=== PATIENT | male | born 1960 | race African-American/Black ===

== ENCOUNTER 2020-06-12 08:53 | Inpatient (IN) | payer OTHER ==
[2020-06-12 11:23] VITALS: BMI 19.8
[2020-06-12] MEDS ORDERED: PERMETHRIN 5% TOPICAL CREAM 60 GM TUBE ONE (11:39)
[2020-06-12] MEDS ORDERED: MAG HYDROX/AL HYDROX/SIMETH 30 ML UNIT-DOSE CUP PO PRN (13:40)
[2020-06-12] MEDS ORDERED: IBUPROFEN 400 MG TABLET (FP) PO PRN (13:40)
[2020-06-12] MEDS ORDERED: MAGNESIUM CITRATE 300 ML BOTTLE PO PRN (13:40)
[2020-06-12] MEDS ORDERED: ACETAMINOPHEN 325 MG TABLET (FP) PO PRN ×2 (13:40)
[2020-06-12] MEDS ORDERED: ONDANSETRON *ODT* 4 MG TABLET SL PRN (13:40)
[2020-06-12] MEDS ORDERED: MENTHOL/PHENOL 1 EACH UD MM PRN (13:40)
[2020-06-12] MEDS ORDERED: MAGNESIUM HYDROX 2400MG/30ML ORAL SUSPENSION 30 ML CUP PO PRN (13:40)
[2020-06-12] MEDS ORDERED: NICOTINE POLACRILEX 2 MG GUM BUC PRN (13:40)
[2020-06-12] MEDS ORDERED: LORazepam 1 MG TABLET PO PRN (13:40)
[2020-06-12] MEDS ORDERED: METHOCARBAMOL 500 MG TABLET PO PRN (13:40)
[2020-06-12] MEDS ORDERED: BISMUTH SUBSALICYLATE 524 MG/30 ML UD PO PRN (13:40)
[2020-06-12] MEDS: NICOTINE 7 MG/24 HOURS TOPICAL PATCH TD SCH (14:41)
[2020-06-12] MEDS: hydrOXYzine PAMOATE 25 MG CAPSULE (FP) PO SCH ×3 (14:43→23:02)
[2020-06-12] MEDS ORDERED: PERMETHRIN 5% TOPICAL CREAM 60 GM TUBE TP ONE (14:45)
[2020-06-12 16:31] LABS: HEMATOCRIT 27.2 % (35.4-49); HEMOGLOBIN 9.2 GM/dL (11.7-16.9); MCH 31.6 pg (25.7-33.7); MCHC 33.8 g/dl (32.0-35.9); MEAN CELL VOLUME 93.3 fl (80-96); MEAN PLT VOLUME 9.7 fl (7.5-11.1); PLATELET COUNT 92 K/MM3 (134-434); RBC 2.91 M/mm3 (4.00-5.60); RDW 15.6 % (11.9-15.9); WHITE BLOOD COUNT 5.4 K/mm3 (4.0-10.0)
[2020-06-12 16:33] LABS: POTASSIUM 4.3 mmol/L (3.5-5.1)
[2020-06-12 16:38] LABS: ALBUMIN 1.8 g/dl (3.4-5.0); BLOOD UREA NITROGEN 13.4 mg/dL (7-18)
[2020-06-12 16:40] LABS: CREATININE 0.9 mg/dL (0.55-1.3)
[2020-06-12 16:42] LABS: BILIRUBIN,TOTAL 2.6 mg/dL (0.2-1)
[2020-06-12 16:43] LABS: TOT PROT 8.5 g/dl (6.4-8.2)
[2020-06-12] MEDS: LORazepam 2 MG TABLET PO SCH ×2 (18:26→23:02)
[2020-06-12] MEDS: PANTOPRAZOLE 20 MG TABLET PO SCH (23:02)
[2020-06-12] MEDS: THIAMINE HCL 100 MG TABLET (FP) PO SCH (23:02)
[2020-06-12] MEDS: MELATONIN 5 MG TABLETS PO SCH (23:03)
[2020-06-13] MEDS: LORazepam 2 MG TABLET PO SCH ×4 (04:46→23:28)
[2020-06-13] MEDS: hydrOXYzine PAMOATE 25 MG CAPSULE (FP) PO SCH ×3 (05:49→13:26)
[2020-06-13] MEDS: SPIRONOLACTONE 25 MG TABLET PO SCH (10:34)
[2020-06-13] MEDS: PRENATAL VITAMINS W/ FOLIC ACID TABLET (FP) PO SCH (10:34)
[2020-06-13] MEDS: PANTOPRAZOLE 20 MG TABLET PO SCH ×2 (10:34→23:29)
[2020-06-13] MEDS: NICOTINE 7 MG/24 HOURS TOPICAL PATCH TD SCH (10:44)
[2020-06-13] MEDS: FUROSEMIDE 20 MG TABLET (FP) PO SCH (13:23)
[2020-06-13] MEDS: FERROUS SO4 325 MG TABLET (FP) PO SCH (14:40)
[2020-06-13] MEDS: THIAMINE HCL 100 MG TABLET (FP) PO SCH (23:29)
[2020-06-13] MEDS: MELATONIN 5 MG TABLETS PO SCH (23:29)
[2020-06-14] MEDS: LORazepam 1 MG TABLET PO SCH ×4 (06:18→23:24)
[2020-06-14] MEDS: SPIRONOLACTONE 25 MG TABLET PO SCH (10:43)
[2020-06-14] MEDS: FUROSEMIDE 20 MG TABLET (FP) PO SCH (10:44)
[2020-06-14] MEDS: FERROUS SO4 325 MG TABLET (FP) PO SCH (10:44)
[2020-06-14] MEDS: PRENATAL VITAMINS W/ FOLIC ACID TABLET (FP) PO SCH (10:44)
[2020-06-14] MEDS: PANTOPRAZOLE 20 MG TABLET PO SCH ×2 (10:44→23:24)
[2020-06-14] MEDS: NICOTINE 7 MG/24 HOURS TOPICAL PATCH TD SCH (10:44)
[2020-06-14 13:48] LABS: POTASSIUM 4.2 mmol/L (3.5-5.1)
[2020-06-14 13:51] LABS: HEMOGLOBIN 9.4 GM/dL (11.7-16.9); MCH 31.8 pg (25.7-33.7); MCHC 33.7 g/dl (32.0-35.9); MEAN CELL VOLUME 94.2 fl (80-96); PLATELET COUNT 82 K/MM3 (134-434); RBC 2.97 M/mm3 (4.00-5.60); RDW 16.6 % (11.9-15.9); WHITE BLOOD COUNT 7.6 K/mm3 (4.0-10.0)
[2020-06-14 13:53] LABS: INR 1.93 (0.83-1.09); PROTHROMBIN TIME (PATIENT) 23.3 SEC (9.7-13.0)
[2020-06-14 13:59] LABS: ALBUMIN 1.8 g/dl (3.4-5.0); BLOOD UREA NITROGEN 10.2 mg/dL (7-18); CALCIUM 8.4 mg/dL (8.5-10.1)
[2020-06-14 14:02] LABS: CREATININE 0.8 mg/dL (0.55-1.3)
[2020-06-14 14:04] LABS: BILIRUBIN,TOTAL 2.6 mg/dL (0.2-1)
[2020-06-14] MEDS ORDERED: LACTULOSE 20 GM/30 ML UDC (FOR ORAL USE ONLY) PO PRN (16:20)
[2020-06-14] MEDS: THIAMINE HCL 100 MG TABLET (FP) PO SCH (23:24)
[2020-06-14] MEDS: MELATONIN 5 MG TABLETS PO SCH (23:24)
[2020-06-15] MEDS ORDERED: LORazepam 0.5 MG TABLET PO PRN
[2020-06-15] MEDS: LORazepam 0.5 MG TABLET PO SCH ×4 (07:37→22:44)
[2020-06-15] MEDS: SPIRONOLACTONE 25 MG TABLET PO SCH (10:42)
[2020-06-15] MEDS: PRENATAL VITAMINS W/ FOLIC ACID TABLET (FP) PO SCH (10:42)
[2020-06-15] MEDS: FERROUS SO4 325 MG TABLET (FP) PO SCH ×2 (10:42→18:35)
[2020-06-15] MEDS: PANTOPRAZOLE 20 MG TABLET PO SCH ×2 (10:42→22:45)
[2020-06-15] MEDS: FUROSEMIDE 20 MG TABLET (FP) PO SCH (10:42)
[2020-06-15] MEDS: NICOTINE 7 MG/24 HOURS TOPICAL PATCH TD SCH (10:42)
[2020-06-15 11:16] LABS: POTASSIUM 4.3 mmol/L (3.5-5.1)
[2020-06-15 11:21] LABS: ALBUMIN 1.7 g/dl (3.4-5.0); BLOOD UREA NITROGEN 12.7 mg/dL (7-18)
[2020-06-15 11:23] LABS: CALCIUM 8.6 mg/dL (8.5-10.1)
[2020-06-15 11:24] LABS: CREATININE 0.7 mg/dL (0.55-1.3)
[2020-06-15 11:25] LABS: BILIRUBIN,TOTAL 2.2 mg/dL (0.2-1)
[2020-06-15 11:26] LABS: TOT PROT 8.5 g/dl (6.4-8.2)
[2020-06-15 11:29] LABS: HEMOGLOBIN 9.9 GM/dL (11.7-16.9); MCH 31.7 pg (25.7-33.7); MEAN CELL VOLUME 92.9 fl (80-96)
[2020-06-15 11:33] LABS: HEMATOCRIT 28.9 % (35.4-49); INR 2.02 (0.83-1.09); MCHC 34.1 g/dl (32.0-35.9); MEAN PLT VOLUME 10.2 fl (7.5-11.1); PLATELET COUNT 87 K/MM3 (134-434); RBC 3.11 M/mm3 (4.00-5.60); RDW 16.8 % (11.9-15.9); WHITE BLOOD COUNT 6.3 K/mm3 (4.0-10.0)
[2020-06-15] MEDS: LACTULOSE 20 GM/30 ML UDC (FOR ORAL USE ONLY) PO SCH ×2 (18:34→22:45)
[2020-06-15] MEDS: THIAMINE HCL 100 MG TABLET (FP) PO SCH (22:45)
[2020-06-15] MEDS: MELATONIN 5 MG TABLETS PO SCH (22:45)
[2020-06-16] MEDS ORDERED: LORazepam 0.5 MG TABLET PO ONE (05:00)
[2020-06-16] MEDS: FERROUS SO4 325 MG TABLET (FP) PO SCH ×3 (07:59→19:33)
[2020-06-16 09:51] VITALS: TEMP 97.1
[2020-06-16] MEDS: SPIRONOLACTONE 25 MG TABLET PO SCH (10:17)
[2020-06-16] MEDS: FUROSEMIDE 20 MG TABLET (FP) PO SCH (10:17)
[2020-06-16] MEDS: LACTULOSE 20 GM/30 ML UDC (FOR ORAL USE ONLY) PO SCH ×4 (10:17→23:43)
[2020-06-16] MEDS: NICOTINE 7 MG/24 HOURS TOPICAL PATCH TD SCH (10:18)
[2020-06-16] MEDS: PANTOPRAZOLE 20 MG TABLET PO SCH ×2 (10:44→23:43)
[2020-06-16] MEDS: PRENATAL VITAMINS W/ FOLIC ACID TABLET (FP) PO SCH (10:44)
[2020-06-16 11:50] LABS: POTASSIUM 3.7 mmol/L (3.5-5.1)
[2020-06-16 11:53] LABS: INR 1.82 (0.83-1.09)
[2020-06-16 11:54] LABS: HEMATOCRIT 32.8 % (35.4-49); HEMOGLOBIN 10.6 GM/dL (11.7-16.9); MCH 27.8 pg (25.7-33.7); MCHC 32.2 g/dl (32.0-35.9); MEAN CELL VOLUME 86.2 fl (80-96); MEAN PLT VOLUME 9.8 fl (7.5-11.1); PLATELET COUNT 99 K/MM3 (134-434); RBC 3.81 M/mm3 (4.00-5.60); RDW 22.4 % (11.9-15.9); WHITE BLOOD COUNT 6.5 K/mm3 (4.0-10.0)
[2020-06-16 12:14] LABS: BLOOD UREA NITROGEN 10.9 mg/dL (7-18)
[2020-06-16 12:18] LABS: BILIRUBIN,TOTAL 2.8 mg/dL (0.2-1); TOT PROT 8.4 g/dl (6.4-8.2)
[2020-06-16 12:19] LABS: CALCIUM 8.3 mg/dL (8.5-10.1)
[2020-06-16 13:14] VITALS: BP 90/56; PULSE 109
[2020-06-16] MEDS: MELATONIN 5 MG TABLETS PO SCH (23:43)
[2020-06-16] MEDS: THIAMINE HCL 100 MG TABLET (FP) PO SCH (23:43)
== END 2020-06-16 23:48 | disposition short-term general hospital (02) | DRG 775 ==
LOC: YASAS 08:53 → Y6N 13:29
PROVIDERS: ADMIT Allergy & Immunology; ATTEND Allergy & Immunology
PROC: HZ2ZZZZ Detoxification Services for Substance Abuse Treatment (ICD-10-PCS; principal; 2020-06-12)
DX: F10.230 Alcohol dependence with withdrawal, uncomplicated (principal); F12.10 Cannabis abuse, uncomplicated; F17.210 Nicotine dependence, cigarettes, uncomplicated; D61.818 Other pancytopenia; D64.9 Anemia, unspecified; B88.8 Other specified infestations; B18.2 Chronic viral hepatitis C; K74.60 Unspecified cirrhosis of liver; M19.90 Unspecified osteoarthritis, unspecified site; R41.82 Altered mental status, unspecified; K00.0 Anodontia; R63.4 Abnormal weight loss; Z68.1 Body mass index [BMI] 19.9 or less, adult; Z56.0 Unemployment, unspecified
CPT/HCPCS: 36415; 80053; 82140; 85027; 85610; 86780; 93005; 93010; C9803; U0003

== ENCOUNTER 2020-06-16 15:07 | Inpatient (IN) | payer OTHER ==
[2020-06-16] MEDS ORDERED: LACTULOSE 20 GM/30 ML UDC (FOR ORAL USE ONLY) PO ONE ×2 (17:23→21:28)
[2020-06-16] MEDS ORDERED: LACTULOSE 20 GM/30 ML UDC (FOR ORAL USE ONLY) ONE ×2 (17:29→21:43)
[2020-06-16 18:48] LABS: PH,URINE 8.5 (5.0-8.0); URINE APPEARANCE TURBID; URINE BILIRUBIN NEGATIVE (NEGATIVE); URINE COLOR DK YELLOW; URINE GLUCOSE (UA) NEGATIVE (NEGATIVE); URINE KETONE NEGATIVE (NEGATIVE); URINE LEUK ESTERASE 2+ (NEGATIVE); URINE NITRITE NEGATIVE (NEGATIVE); URINE PROTEIN NEGATIVE (NEGATIVE); URINE RBC 3 /uL (0-23.9); URINE WBC 73 /uL (0-25.8)
[2020-06-16 18:49] LABS: EPI CELLS 85 /uL (0-25.1); HYALINE CASTS 289 /uL (0-3.1); URINE BACTERIA 630 /uL (0-1359)
[2020-06-16] MEDS ORDERED: THIAMINE HCL 200 MG/2 ML VIAL IVPB ONE (20:47)
[2020-06-16] MEDS ORDERED: LACTATED RINGERS SOLUTION 1,000 ML/1,000 ML INFUS.BAG IV SCH (21:00)
[2020-06-16] MEDS ORDERED: CEFTRIAXONE 1,000 MG in DEXTROSE 5%-WATER - 50 ML IVPB ONE (21:26)
[2020-06-16] MEDS ORDERED: THIAMINE HCL 200 MG/2 ML VIAL ONE (21:27)
[2020-06-16] MEDS ORDERED: LORazepam 1 MG TABLET PO PRN (21:32)
[2020-06-16] MEDS ORDERED: CEFTRIAXONE 1 GM/50 ML BAG ONE (21:44)
[2020-06-16] MEDS: LACTULOSE 20 GM/30 ML UDC (FOR ORAL USE ONLY) PO SCH (23:43)
[2020-06-16] MEDS: RIFAXIMIN 550 MG TABLET (UD) PO SCH (23:54)
[2020-06-17] MEDS ORDERED: LACTULOSE 20 GM/30 ML UDC (FOR ORAL USE ONLY) PO SCH (03:00)
[2020-06-17] MEDS ORDERED: LACTULOSE 20 GM/30 ML UDC (FOR ORAL USE ONLY) ONE ×2 (06:57→14:46)
[2020-06-17] MEDS: LACTULOSE 20 GM/30 ML UDC (FOR ORAL USE ONLY) PO SCH ×3 (06:59→21:51)
[2020-06-17 08:24] LABS: HEMATOCRIT 27.2 % (35.4-49); HEMOGLOBIN 9.2 GM/dL (11.7-16.9); MCH 31.8 pg (25.7-33.7); MCHC 33.7 g/dl (32.0-35.9); MEAN CELL VOLUME 94.4 fl (80-96); PLATELET COUNT 69 K/MM3 (134-434); RBC 2.88 M/mm3 (4.00-5.60); RDW 17.3 % (11.9-15.9); WHITE BLOOD COUNT 6.4 K/mm3 (4.0-10.0)
[2020-06-17 08:31] LABS: INR 1.95 (0.83-1.09); PROTHROMBIN TIME (PATIENT) 23.1 SEC (9.7-13.0)
[2020-06-17 08:34] LABS: ACTIVATED PTT 38.9 SECONDS (25.2-36.5)
[2020-06-17 08:46] LABS: POTASSIUM 4.6 mmol/L (3.5-5.1)
[2020-06-17 08:58] LABS: CALCIUM 8.7 mg/dL (8.5-10.1)
[2020-06-17 08:59] LABS: MAGNESIUM 1.6 mg/dL (1.8-2.4)
[2020-06-17 09:02] LABS: BLOOD UREA NITROGEN 7.6 mg/dL (7-18); PHOSPHOROUS 3.8 mg/dL (2.5-4.9)
[2020-06-17 09:03] LABS: BILIRUBIN,TOTAL 2.1 mg/dL (0.2-1); TOT PROT 8.6 g/dl (6.4-8.2)
[2020-06-17 09:05] LABS: CREATININE 0.8 mg/dL (0.55-1.3)
[2020-06-17] MEDS ORDERED: FOLIC ACID 1 MG TABLET (FP) ONE (09:34)
[2020-06-17] MEDS ORDERED: THIAMINE HCL 100 MG TABLET (FP) ONE (09:35)
[2020-06-17 09:44] LABS: ALBUMIN 1.8 g/dl (3.4-5.0)
[2020-06-17] MEDS: THIAMINE HCL 100 MG TABLET (FP) PO SCH ×2 (10:00→21:50)
[2020-06-17] MEDS: FOLIC ACID 1 MG TABLET (FP) PO SCH (10:00)
[2020-06-17] MEDS: RIFAXIMIN 550 MG TABLET (UD) PO SCH ×2 (10:15→21:50)
[2020-06-17] MEDS ORDERED: CEFTRIAXONE 1 GM/50 ML BAG ONE (14:50)
[2020-06-17] MEDS: SODIUM CHLORIDE 1,000 ML IV SCH (15:03)
[2020-06-17] MEDS: CEFTRIAXONE 1 GM in DEXTROSE 5%-WATER - 50 ML IVPB SCH (15:03)
[2020-06-17] MEDS ORDERED: MAGNESIUM OXIDE 400 MG TABLET (FP) PO ONE (19:20)
[2020-06-18] MEDS ORDERED: LORazepam 0.5 MG TABLET PO PRN
[2020-06-18] MEDS: LACTULOSE 20 GM/30 ML UDC (FOR ORAL USE ONLY) PO SCH (06:10)
[2020-06-18 09:08] LABS: HEMATOCRIT 28.3 % (35.4-49); HEMOGLOBIN 9.5 GM/dL (11.7-16.9); MCH 31.7 pg (25.7-33.7); MCHC 33.7 g/dl (32.0-35.9); MEAN CELL VOLUME 93.9 fl (80-96); MEAN PLT VOLUME 10.7 fl (7.5-11.1); RBC 3.01 M/mm3 (4.00-5.60); RDW 17.4 % (11.9-15.9); WHITE BLOOD COUNT 6.9 K/mm3 (4.0-10.0)
[2020-06-18 09:15] LABS: INR 1.89 (0.83-1.09); PROTHROMBIN TIME (PATIENT) 22.8 SEC (9.7-13.0)
[2020-06-18 09:16] LABS: PLATELET COUNT 78 K/MM3 (134-434)
[2020-06-18 09:17] LABS: ACTIVATED PTT 38.9 SECONDS (25.2-36.5)
[2020-06-18 09:22] LABS: POTASSIUM 4.1 mmol/L (3.5-5.1)
[2020-06-18 09:30] LABS: ALBUMIN 1.7 g/dl (3.4-5.0)
[2020-06-18 09:31] LABS: CALCIUM 8.1 mg/dL (8.5-10.1); MAGNESIUM 1.6 mg/dL (1.8-2.4)
[2020-06-18 09:32] LABS: BLOOD UREA NITROGEN 9.6 mg/dL (7-18)
[2020-06-18 09:33] LABS: CREATININE 0.7 mg/dL (0.55-1.3)
[2020-06-18 09:34] LABS: BILIRUBIN,TOTAL 1.9 mg/dL (0.2-1); PHOSPHOROUS 3.3 mg/dL (2.5-4.9)
[2020-06-18] MEDS ORDERED: cefTRIAXone SODIUM 1 GM VIAL ONE (10:02)
[2020-06-18] MEDS ORDERED: DEXTROSE 5%-WATER - 50 ML IVPB ONE (10:03)
[2020-06-18] MEDS: SODIUM CHLORIDE 1,000 ML IV SCH (10:04)
[2020-06-18] MEDS: CEFTRIAXONE 1 GM in DEXTROSE 5%-WATER - 50 ML IVPB SCH (10:05)
[2020-06-18] MEDS: RIFAXIMIN 550 MG TABLET (UD) PO SCH ×2 (10:05→21:14)
[2020-06-18] MEDS: THIAMINE HCL 100 MG TABLET (FP) PO SCH ×2 (10:05→21:14)
[2020-06-18] MEDS: FOLIC ACID 1 MG TABLET (FP) PO SCH (10:05)
[2020-06-18] MEDS ORDERED: LACTULOSE 20 GM/30 ML UDC (FOR ORAL USE ONLY) PO PRN (10:06)
[2020-06-18] MEDS ORDERED: MAGNESIUM SULF 50% (8.12 MEQ/2 ML-1 GM VIAL) IVPB ONE (10:22)
[2020-06-18 14:14] LABS: HIV INTERPRETATION NEGATIVE (NEGATIVE)
[2020-06-18] MEDS ORDERED: ENOXAPARIN NA (PORCINE) 40 MG/0.4 ML DISP.SYRIN SQ ONE (14:25)
[2020-06-18] MEDS: MULTIVITAMINS (DAILY MVI) TABLET (FP) PO SCH (14:34)
[2020-06-19] MEDS: SODIUM CHLORIDE 1,000 ML IV SCH (02:00)
[2020-06-19] MEDS ORDERED: SODIUM CHLORIDE 500 ML IV STA (05:52)
[2020-06-19] MEDS ORDERED: cefTRIAXone SODIUM 1 GM VIAL ONE (08:45)
[2020-06-19] MEDS ORDERED: DEXTROSE 5%-WATER - 50 ML IVPB ONE (08:46)
[2020-06-19] MEDS: CEFTRIAXONE 1 GM in DEXTROSE 5%-WATER - 50 ML IVPB SCH (09:15)
[2020-06-19] MEDS: RIFAXIMIN 550 MG TABLET (UD) PO SCH ×2 (09:15→22:06)
[2020-06-19] MEDS: MULTIVITAMINS (DAILY MVI) TABLET (FP) PO SCH (09:15)
[2020-06-19] MEDS: THIAMINE HCL 100 MG TABLET (FP) PO SCH ×2 (09:15→22:06)
[2020-06-19] MEDS: FOLIC ACID 1 MG TABLET (FP) PO SCH (09:15)
[2020-06-19 09:20] LABS: POTASSIUM 4.5 mmol/L (3.5-5.1)
[2020-06-19 09:37] LABS: ALBUMIN 1.5 g/dl (3.4-5.0); BLOOD UREA NITROGEN 7.7 mg/dL (7-18); MAGNESIUM 1.6 mg/dL (1.8-2.4)
[2020-06-19 09:38] LABS: CALCIUM 7.4 mg/dL (8.5-10.1)
[2020-06-19 09:39] LABS: CREATININE 0.5 mg/dL (0.55-1.3)
[2020-06-19 09:40] LABS: PHOSPHOROUS 2.9 mg/dL (2.5-4.9)
[2020-06-19 09:41] LABS: BILIRUBIN,TOTAL 1.7 mg/dL (0.2-1)
[2020-06-19 09:57] LABS: BASO % 1.1 % (0-2.0); EOS % 7.3 % (0-4.5); HEMATOCRIT 22.7 % (35.4-49); HEMOGLOBIN 7.7 GM/dL (11.7-16.9); LYMPH % 26.6 % (8-40); MCH 31.9 pg (25.7-33.7); MCHC 34.1 g/dl (32.0-35.9); MEAN CELL VOLUME 93.7 fl (80-96); MEAN PLT VOLUME 9.7 fl (7.5-11.1); MONO % 16.3 % (3.8-10.2); NEUT % 48.7 % (42.8-82.8); PLATELET COUNT 63 K/MM3 (134-434); RBC 2.42 M/mm3 (4.00-5.60); RDW 17.6 % (11.9-15.9); WHITE BLOOD COUNT 5.7 K/mm3 (4.0-10.0)
[2020-06-19] MEDS ORDERED: MAGNESIUM SULF 50% (8.12 MEQ/2 ML-1 GM VIAL) IVPB ONE (12:31)
[2020-06-19 22:13] VITALS: TEMP 97.6
[2020-06-20 06:36] VITALS: BP 95/71; PULSE 83
[2020-06-20] MEDS: SODIUM CHLORIDE 1,000 ML IV SCH (06:36)
[2020-06-20] MEDS ORDERED: cefTRIAXone SODIUM 1 GM VIAL ONE (10:15)
[2020-06-20] MEDS ORDERED: DEXTROSE 5%-WATER - 50 ML IVPB ONE (10:15)
[2020-06-20 10:29] LABS: BASO % 1.1 % (0-2.0); EOS % 7.1 % (0-4.5); HEMATOCRIT 27.3 % (35.4-49); HEMOGLOBIN 9.2 GM/dL (11.7-16.9); LYMPH % 22.4 % (8-40); MCH 31.5 pg (25.7-33.7); MCHC 33.9 g/dl (32.0-35.9); MEAN CELL VOLUME 92.9 fl (80-96); MEAN PLT VOLUME 8.8 fl (7.5-11.1); MONO % 18.3 % (3.8-10.2); NEUT % 51.1 % (42.8-82.8); PLATELET COUNT 56 K/MM3 (134-434); RBC 2.94 M/mm3 (4.00-5.60); RDW 16.8 % (11.9-15.9); WHITE BLOOD COUNT 6.5 K/mm3 (4.0-10.0)
[2020-06-20] MEDS: THIAMINE HCL 100 MG TABLET (FP) PO SCH (10:38)
[2020-06-20] MEDS: RIFAXIMIN 550 MG TABLET (UD) PO SCH (10:38)
[2020-06-20] MEDS: FOLIC ACID 1 MG TABLET (FP) PO SCH (10:38)
[2020-06-20] MEDS: MULTIVITAMINS (DAILY MVI) TABLET (FP) PO SCH (10:38)
[2020-06-20] MEDS: CEFTRIAXONE 1 GM in DEXTROSE 5%-WATER - 50 ML IVPB SCH (10:39)
[2020-06-20 10:52] LABS: POTASSIUM 4.3 mmol/L (3.5-5.1)
[2020-06-20 10:57] LABS: CALCIUM 7.5 mg/dL (8.5-10.1)
[2020-06-20 10:58] LABS: ALBUMIN 1.5 g/dl (3.4-5.0); BLOOD UREA NITROGEN 7.6 mg/dL (7-18); MAGNESIUM 1.5 mg/dL (1.8-2.4)
[2020-06-20 11:01] LABS: CREATININE 0.5 mg/dL (0.55-1.3)
[2020-06-20 11:02] LABS: BILIRUBIN,TOTAL 2.1 mg/dL (0.2-1); TOT PROT 7.2 g/dl (6.4-8.2)
== END 2020-06-20 18:44 | disposition other institution (70) | DRG 280 ==
LOC: JER 15:07 → JERBED 19:30 → J8W 06-17 16:54 → J6S 06-17 20:24
PROVIDERS: ADMIT Internal Medicine; ATTEND Student in an Organized Health Care Education/Training Program
DX: K70.40 Alcoholic hepatic failure without coma (principal); K70.30 Alcoholic cirrhosis of liver without ascites; D69.6 Thrombocytopenia, unspecified; B19.10 Unspecified viral hepatitis B without hepatic coma; E83.42 Hypomagnesemia; R64 Cachexia; D64.9 Anemia, unspecified; F10.230 Alcohol dependence with withdrawal, uncomplicated; B19.20 Unspecified viral hepatitis C without hepatic coma; N39.0 Urinary tract infection, site not specified; Z68.1 Body mass index [BMI] 19.9 or less, adult; B86 Scabies
CPT/HCPCS: 36415; 36430; 36511; 70450-TC; 71045-TC-FY; 80053; 80074; 81003; 82140; 82607; 82746; 83540; 83550; 83735; 84100; 85025; 85027; 85610; 85730; 86317; 86704; 86705; 86707; 86850; 86900; 86901; 86922; 87040; 87086; 87186; 87340; 87350; 87389; 87517; 87522; 93005; 93010; 99285-25; C9803; P9016; P9038; U0003

== ENCOUNTER 2020-06-20 18:29 | Inpatient (IN) | payer OTHER ==
[2020-06-20 19:29] VITALS: BMI 21.2
[2020-06-20] MEDS ORDERED: LACTULOSE 20 GM/30 ML UDC (FOR ORAL USE ONLY) PO PRN (19:47)
[2020-06-20] MEDS ORDERED: MAGNESIUM HYDROX 2400MG/30ML ORAL SUSPENSION 30 ML CUP PO PRN (19:48)
[2020-06-20] MEDS ORDERED: MAG HYDROX/AL HYDROX/SIMETH 30 ML UNIT-DOSE CUP PO PRN (19:48)
[2020-06-20] MEDS ORDERED: P-EPHED 60MG/TRIPROLIDI 2.5MG TABLET PO PRN (19:48)
[2020-06-20] MEDS ORDERED: MAGNESIUM CITRATE 300 ML BOTTLE PO PRN (19:48)
[2020-06-20] MEDS ORDERED: LOPERAMIDE HCL 2 MG CAPSULE PO PRN (19:48)
[2020-06-20] MEDS ORDERED: NICOTINE POLACRILEX 2 MG GUM BC PRN (19:48)
[2020-06-20] MEDS ORDERED: guaiFENesin 200 MG/10 ML 10 ML UNIT-DOSE CUPS PO PRN (19:48)
[2020-06-20] MEDS ORDERED: MASKS NR ONE (22:53)
[2020-06-20] MEDS: RIFAXIMIN 550 MG TABLET (UD) PO SCH (23:13)
[2020-06-20] MEDS: THIAMINE HCL 100 MG TABLET (FP) PO SCH (23:13)
[2020-06-20] MEDS: MELATONIN 5 MG TABLETS PO SCH (23:13)
[2020-06-20] MEDS: PANTOPRAZOLE 20 MG TABLET PO SCH (23:13)
[2020-06-21] MEDS: PANTOPRAZOLE 20 MG TABLET PO SCH ×2 (10:33→21:50)
[2020-06-21] MEDS: PRENATAL VITAMINS W/ FOLIC ACID TABLET (FP) PO SCH (10:33)
[2020-06-21] MEDS: RIFAXIMIN 550 MG TABLET (UD) PO SCH (10:34)
[2020-06-21] MEDS: BACITRACIN 0.9 GM PACKET TP SCH (21:50)
[2020-06-21] MEDS: MELATONIN 5 MG TABLETS PO SCH (21:51)
[2020-06-21] MEDS: THIAMINE HCL 100 MG TABLET (FP) PO SCH (21:51)
[2020-06-22 00:25] LABS: URINE APPEARANCE CLEAR; URINE BILIRUBIN NEGATIVE (NEGATIVE); URINE COLOR YELLOW; URINE GLUCOSE (UA) NEGATIVE (NEGATIVE); URINE KETONE NEGATIVE (NEGATIVE); URINE LEUK ESTERASE NEGATIVE (NEGATIVE); URINE NITRITE NEGATIVE (NEGATIVE); URINE PROTEIN NEGATIVE (NEGATIVE)
[2020-06-22] MEDS: RIFAXIMIN 550 MG TABLET (UD) PO SCH ×3 (01:00→21:24)
[2020-06-22] MEDS: PANTOPRAZOLE 20 MG TABLET PO SCH ×2 (10:12→21:23)
[2020-06-22] MEDS: BACITRACIN 0.9 GM PACKET TP SCH ×2 (10:12→21:24)
[2020-06-22] MEDS: PRENATAL VITAMINS W/ FOLIC ACID TABLET (FP) PO SCH (10:12)
[2020-06-22] MEDS: THIAMINE HCL 100 MG TABLET (FP) PO SCH (21:23)
[2020-06-22] MEDS: MELATONIN 5 MG TABLETS PO SCH (21:24)
[2020-06-23] MEDS: BACITRACIN 0.9 GM PACKET TP SCH ×2 (10:53→22:00)
[2020-06-23] MEDS: PANTOPRAZOLE 20 MG TABLET PO SCH ×2 (10:53→22:00)
[2020-06-23] MEDS: PRENATAL VITAMINS W/ FOLIC ACID TABLET (FP) PO SCH (10:53)
[2020-06-23] MEDS: RIFAXIMIN 550 MG TABLET (UD) PO SCH ×2 (10:54→22:01)
[2020-06-23] MEDS: MELATONIN 5 MG TABLETS PO SCH (22:00)
[2020-06-23] MEDS: THIAMINE HCL 100 MG TABLET (FP) PO SCH (22:00)
[2020-06-24] MEDS ORDERED: PT OWN MED DRAWER 7, Y5N ONE (09:36)
[2020-06-24] MEDS: PRENATAL VITAMINS W/ FOLIC ACID TABLET (FP) PO SCH (10:59)
[2020-06-24] MEDS: RIFAXIMIN 550 MG TABLET (UD) PO SCH ×2 (10:59→22:02)
[2020-06-24] MEDS: PANTOPRAZOLE 20 MG TABLET PO SCH ×2 (10:59→22:02)
[2020-06-24] MEDS: IBUPROFEN 400 MG TABLET (FP) PO PRN (11:00)
[2020-06-24] MEDS: BACITRACIN 0.9 GM PACKET TP SCH ×2 (11:03→22:02)
[2020-06-24] MEDS: THIAMINE HCL 100 MG TABLET (FP) PO SCH (22:02)
[2020-06-24] MEDS: MELATONIN 5 MG TABLETS PO SCH (22:02)
[2020-06-25] MEDS: PRENATAL VITAMINS W/ FOLIC ACID TABLET (FP) PO SCH (10:28)
[2020-06-25] MEDS: BACITRACIN 0.9 GM PACKET TP SCH ×2 (10:28→21:42)
[2020-06-25] MEDS: PANTOPRAZOLE 20 MG TABLET PO SCH ×2 (10:28→21:42)
[2020-06-25] MEDS: RIFAXIMIN 550 MG TABLET (UD) PO SCH ×2 (10:28→21:42)
[2020-06-25] MEDS: THIAMINE HCL 100 MG TABLET (FP) PO SCH (21:42)
[2020-06-25] MEDS: MELATONIN 5 MG TABLETS PO SCH (21:42)
[2020-06-25] MEDS: IBUPROFEN 400 MG TABLET (FP) PO PRN (21:43)
[2020-06-26] MEDS: RIFAXIMIN 550 MG TABLET (UD) PO SCH ×2 (10:25→21:27)
[2020-06-26] MEDS: PRENATAL VITAMINS W/ FOLIC ACID TABLET (FP) PO SCH (10:25)
[2020-06-26] MEDS: BACITRACIN 0.9 GM PACKET TP SCH ×2 (10:27→21:27)
[2020-06-26] MEDS: PANTOPRAZOLE 20 MG TABLET PO SCH ×2 (10:27→21:26)
[2020-06-26] MEDS: IBUPROFEN 400 MG TABLET (FP) PO PRN (10:28)
[2020-06-26] MEDS: THIAMINE HCL 100 MG TABLET (FP) PO SCH (21:26)
[2020-06-26] MEDS: MELATONIN 5 MG TABLETS PO SCH (21:27)
[2020-06-27] MEDS ORDERED: COLLOIDAL OATMEAL 1 BAR EACH TP PRN (10:04)
[2020-06-27] MEDS: PRENATAL VITAMINS W/ FOLIC ACID TABLET (FP) PO SCH (10:23)
[2020-06-27] MEDS: PANTOPRAZOLE 20 MG TABLET PO SCH ×2 (10:23→22:04)
[2020-06-27] MEDS: RIFAXIMIN 550 MG TABLET (UD) PO SCH (10:24)
[2020-06-27] MEDS: BACITRACIN 0.9 GM PACKET TP SCH ×2 (10:24→22:02)
[2020-06-27] MEDS: IBUPROFEN 400 MG TABLET (FP) PO PRN (10:25)
[2020-06-27 12:15] LABS: HEMATOCRIT 27.7 % (35.4-49); HEMOGLOBIN 9.4 GM/dL (11.7-16.9); MEAN CELL VOLUME 94.2 fl (80-96); MEAN PLT VOLUME 10.6 fl (7.5-11.1); PLATELET COUNT 80 K/MM3 (134-434); RBC 2.94 M/mm3 (4.00-5.60); RDW 18.4 % (11.9-15.9); WHITE BLOOD COUNT 5.6 K/mm3 (4.0-10.0)
[2020-06-27 12:34] LABS: CALCIUM 8.4 mg/dL (8.5-10.1)
[2020-06-27 12:35] LABS: ALBUMIN 1.7 g/dl (3.4-5.0); BLOOD UREA NITROGEN 5.1 mg/dL (7-18)
[2020-06-27 12:38] LABS: CREATININE 0.6 mg/dL (0.55-1.3)
[2020-06-27 12:39] LABS: BILIRUBIN,TOTAL 2.1 mg/dL (0.2-1)
[2020-06-27 12:40] LABS: TOT PROT 7.4 g/dl (6.4-8.2)
[2020-06-27] MEDS: MELATONIN 5 MG TABLETS PO SCH (22:02)
[2020-06-27] MEDS: THIAMINE HCL 100 MG TABLET (FP) PO SCH (22:04)
[2020-06-28] MEDS: PRENATAL VITAMINS W/ FOLIC ACID TABLET (FP) PO SCH (10:48)
[2020-06-28] MEDS: BACITRACIN 0.9 GM PACKET TP SCH ×2 (10:49→21:06)
[2020-06-28] MEDS: PANTOPRAZOLE 20 MG TABLET PO SCH ×2 (10:49→21:06)
[2020-06-28] MEDS: IBUPROFEN 400 MG TABLET (FP) PO PRN ×2 (10:50→21:58)
[2020-06-28] MEDS ORDERED: FERROUS SO4 325 MG TABLET (FP) PO SCH ×2 (12:15→17:30)
[2020-06-28] MEDS ORDERED: RIFAXIMIN 550 MG TABLET (UD) PO ONE (12:45)
[2020-06-28] MEDS: RIFAXIMIN 550 MG TABLET (UD) PO SCH (21:06)
[2020-06-28] MEDS: THIAMINE HCL 100 MG TABLET (FP) PO SCH (21:06)
[2020-06-28] MEDS: MELATONIN 5 MG TABLETS PO SCH (21:07)
[2020-06-29] MEDS: IBUPROFEN 400 MG TABLET (FP) PO PRN ×2 (06:45→13:52)
[2020-06-29] MEDS: PANTOPRAZOLE 20 MG TABLET PO SCH ×2 (10:38→21:53)
[2020-06-29] MEDS: BACITRACIN 0.9 GM PACKET TP SCH ×2 (10:38→21:51)
[2020-06-29] MEDS: PRENATAL VITAMINS W/ FOLIC ACID TABLET (FP) PO SCH (10:38)
[2020-06-29] MEDS: RIFAXIMIN 550 MG TABLET (UD) PO SCH ×2 (10:39→21:53)
[2020-06-29] MEDS ORDERED: METHOCARBAMOL 500 MG TABLET PO PRN (12:07)
[2020-06-29] MEDS: METHYL SALICYLATE/MENTHOL OINT 30 GM TUBE TP SCH ×2 (13:54→21:54)
[2020-06-29] MEDS: VITAMINS A AND D TOPICAL OINTMENT 60 GM TUBE TP SCH ×3 (13:59→21:52)
[2020-06-29] MEDS ORDERED: NAPROXEN 500 MG TABLET PO PRN (14:25)
[2020-06-29] MEDS: MELATONIN 5 MG TABLETS PO SCH (21:52)
[2020-06-29] MEDS: METHOCARBAMOL 500 MG TABLET PO PRN (21:52)
[2020-06-29] MEDS: THIAMINE HCL 100 MG TABLET (FP) PO SCH (21:53)
[2020-06-30] MEDS: PANTOPRAZOLE 20 MG TABLET PO SCH ×2 (10:19→21:52)
[2020-06-30] MEDS: VITAMINS A AND D TOPICAL OINTMENT 60 GM TUBE TP SCH ×2 (10:19→21:53)
[2020-06-30] MEDS: PRENATAL VITAMINS W/ FOLIC ACID TABLET (FP) PO SCH (10:19)
[2020-06-30] MEDS: BACITRACIN 0.9 GM PACKET TP SCH ×2 (10:20→21:53)
[2020-06-30] MEDS: RIFAXIMIN 550 MG TABLET (UD) PO SCH ×2 (10:20→21:52)
[2020-06-30] MEDS: METHYL SALICYLATE/MENTHOL OINT 30 GM TUBE TP SCH ×2 (10:22→21:53)
[2020-06-30] MEDS: METHOCARBAMOL 500 MG TABLET PO PRN ×2 (10:24→21:52)
[2020-06-30] MEDS ORDERED: FUROSEMIDE 20 MG TABLET (FP) PO ONE (11:00)
[2020-06-30] MEDS ORDERED: SPIRONOLACTONE 25 MG TABLET PO ONE (11:00)
[2020-06-30] MEDS: MELATONIN 5 MG TABLETS PO SCH (21:52)
[2020-06-30] MEDS: THIAMINE HCL 100 MG TABLET (FP) PO SCH (21:52)
[2020-06-30] MEDS: SPIRONOLACTONE 25 MG TABLET PO SCH (21:52)
[2020-07-01] MEDS: METHYL SALICYLATE/MENTHOL OINT 30 GM TUBE TP SCH ×2 (10:03→21:23)
[2020-07-01] MEDS: RIFAXIMIN 550 MG TABLET (UD) PO SCH ×2 (10:03→21:28)
[2020-07-01] MEDS: VITAMINS A AND D TOPICAL OINTMENT 60 GM TUBE TP SCH ×2 (10:03→21:26)
[2020-07-01] MEDS: BACITRACIN 0.9 GM PACKET TP SCH ×2 (10:03→21:23)
[2020-07-01] MEDS: PRENATAL VITAMINS W/ FOLIC ACID TABLET (FP) PO SCH (10:03)
[2020-07-01] MEDS: PANTOPRAZOLE 20 MG TABLET PO SCH ×2 (10:03→21:27)
[2020-07-01] MEDS: FUROSEMIDE 20 MG TABLET (FP) PO SCH (10:03)
[2020-07-01] MEDS: SPIRONOLACTONE 25 MG TABLET PO SCH ×2 (10:03→21:25)
[2020-07-01] MEDS: MELATONIN 5 MG TABLETS PO SCH (21:19)
[2020-07-01] MEDS: THIAMINE HCL 100 MG TABLET (FP) PO SCH (21:28)
[2020-07-02] MEDS: METHOCARBAMOL 500 MG TABLET PO PRN (06:26)
[2020-07-02] MEDS: PANTOPRAZOLE 20 MG TABLET PO SCH ×2 (09:47→22:02)
[2020-07-02] MEDS: RIFAXIMIN 550 MG TABLET (UD) PO SCH ×2 (09:47→22:02)
[2020-07-02] MEDS: SPIRONOLACTONE 25 MG TABLET PO SCH ×2 (09:48→23:18)
[2020-07-02] MEDS: VITAMINS A AND D TOPICAL OINTMENT 60 GM TUBE TP SCH ×2 (09:50→22:02)
[2020-07-02] MEDS: BACITRACIN 0.9 GM PACKET TP SCH ×2 (09:50→22:02)
[2020-07-02] MEDS: FUROSEMIDE 20 MG TABLET (FP) PO SCH (09:51)
[2020-07-02] MEDS: PRENATAL VITAMINS W/ FOLIC ACID TABLET (FP) PO SCH (09:51)
[2020-07-02] MEDS: METHYL SALICYLATE/MENTHOL OINT 30 GM TUBE TP SCH ×2 (09:51→22:04)
[2020-07-02] MEDS ORDERED: PT OWN MED DRAWER 7, Y5N ONE ×3 (20:48→23:54)
[2020-07-02] MEDS: THIAMINE HCL 100 MG TABLET (FP) PO SCH (22:03)
[2020-07-02] MEDS: MELATONIN 5 MG TABLETS PO SCH (22:04)
[2020-07-03] MEDS: SPIRONOLACTONE 25 MG TABLET PO SCH ×2 (10:14→21:19)
[2020-07-03] MEDS: FUROSEMIDE 20 MG TABLET (FP) PO SCH (10:14)
[2020-07-03] MEDS: PRENATAL VITAMINS W/ FOLIC ACID TABLET (FP) PO SCH (10:14)
[2020-07-03] MEDS: BACITRACIN 0.9 GM PACKET TP SCH ×2 (10:15→21:19)
[2020-07-03] MEDS: VITAMINS A AND D TOPICAL OINTMENT 60 GM TUBE TP SCH ×2 (10:15→21:19)
[2020-07-03] MEDS: PANTOPRAZOLE 20 MG TABLET PO SCH ×2 (10:15→22:04)
[2020-07-03] MEDS: RIFAXIMIN 550 MG TABLET (UD) PO SCH ×2 (10:16→21:20)
[2020-07-03] MEDS: METHYL SALICYLATE/MENTHOL OINT 30 GM TUBE TP SCH ×2 (10:16→21:19)
[2020-07-03] MEDS: METHOCARBAMOL 500 MG TABLET PO PRN (21:20)
[2020-07-03] MEDS: MELATONIN 5 MG TABLETS PO SCH (21:21)
[2020-07-03] MEDS: THIAMINE HCL 100 MG TABLET (FP) PO SCH (21:21)
[2020-07-04 06:53] VITALS: BP 90/65; PULSE 81; TEMP 98.4
[2020-07-04] MEDS: SPIRONOLACTONE 25 MG TABLET PO SCH (09:21)
[2020-07-04] MEDS: FUROSEMIDE 20 MG TABLET (FP) PO SCH (09:22)
[2020-07-04] MEDS: PANTOPRAZOLE 20 MG TABLET PO SCH (09:22)
[2020-07-04] MEDS: BACITRACIN 0.9 GM PACKET TP SCH (09:22)
[2020-07-04] MEDS: PRENATAL VITAMINS W/ FOLIC ACID TABLET (FP) PO SCH (09:22)
[2020-07-04] MEDS: VITAMINS A AND D TOPICAL OINTMENT 60 GM TUBE TP SCH (09:23)
[2020-07-04] MEDS: METHYL SALICYLATE/MENTHOL OINT 30 GM TUBE TP SCH (09:23)
[2020-07-04] MEDS: RIFAXIMIN 550 MG TABLET (UD) PO SCH (09:23)
== END 2020-07-04 09:55 | disposition home or self-care (01) | DRG 772 ==
LOC: YASAS 18:29 → Y5N 21:47
PROVIDERS: ADMIT Allergy & Immunology; ATTEND Allergy & Immunology
PROC: HZ42ZZZ Group Counseling for Substance Abuse Treatment, Cognitive-Behavioral (ICD-10-PCS; principal; 2020-06-20)
DX: F10.20 Alcohol dependence, uncomplicated (principal); F17.210 Nicotine dependence, cigarettes, uncomplicated; D69.6 Thrombocytopenia, unspecified; D64.9 Anemia, unspecified; K72.90 Hepatic failure, unspecified without coma; K74.60 Unspecified cirrhosis of liver; B18.2 Chronic viral hepatitis C; M25.511 Pain in right shoulder; M25.512 Pain in left shoulder; R60.0 Localized edema; M19.90 Unspecified osteoarthritis, unspecified site
CPT/HCPCS: 36415; 80053; 81003; 82140; 85027; C9803; U0003